=== PATIENT | male | born 1980 | race Caucasian/White ===

== ENCOUNTER 2018-07-03 21:08 | Emergency (ER) | payer SELFPAY ==
[~2018-07-03] VITALS: Ht 177.8 cm; Wt 75.0 kg
[2018-07-04 01:33] VITALS: BP 109/75
== END 2018-07-03 23:40 | disposition left against medical advice (07) ==
LOC: ER 21:08
DX: M79.10 Myalgia, unspecified site (principal); R51 Headache; Z53.21 Procedure and treatment not carried out due to patient leaving prior to being seen by health care provider

== ENCOUNTER 2018-07-04 02:50 | Emergency (ER) | payer SELFPAY ==
[~2018-07-04] VITALS: Ht 177.8 cm; Wt 75.0 kg
[2018-07-04] MEDS ORDERED: IBUPROFEN 600MG TABLET PO ONE (05:00)
[2018-07-04 05:19] VITALS: BP 122/81
== END 2018-07-04 05:21 | disposition home or self-care (01) ==
LOC: ER 02:50
DX: M79.10 Myalgia, unspecified site (principal)
CPT/HCPCS: 71045; 87804; 99284